=== PATIENT | female | born 1990 | race Caucasian/White ===

== ENCOUNTER 2022-10-31 13:00 | Outpatient (RCR) | payer MEDICARE, MEDICAID, OTHER, SELFPAY | END 2022-10-31 14:04 | disposition home or self-care (01) | PROVIDERS: Visit Provider Physician Assistant | DX: G43.009 Migraine without aura, not intractable, without status migrainosus (principal); M54.2 Cervicalgia; R51.0 Headache with orthostatic component, not elsewhere classified; Z51.89 Encounter for other specified aftercare | CPT/HCPCS: 97110; 97112; 97140; 97161; 97530 ==

== ENCOUNTER 2024-08-28 09:30 | Outpatient (RCR) | payer MEDICARE, MEDICAID, SELFPAY | END 2024-11-04 14:05 | disposition home or self-care (01) | PROVIDERS: Visit Provider Family Medicine | DX: G44.229 Chronic tension-type headache, not intractable (principal); M54.2 Cervicalgia; R29.3 Abnormal posture; M62.81 Muscle weakness (generalized); Z51.89 Encounter for other specified aftercare | CPT/HCPCS: 97110; 97140; 97161 ==